=== PATIENT | male | born 1970 | race Caucasian/White ===

== ENCOUNTER 2018-05-27 19:11 | Emergency (ER) | payer SELFPAY ==
[2018-05-27 19:15] VITALS: BMI 27.2
[2018-05-27 19:38] VITALS: RESP 18
--- NOTE | 2018-05-27 21:57 | ED PDOC ---
Arrival/HPI - General Chief Complaint: Alcohol Ingestion Time Seen by Provider: 05/27/18 19:18 - History of Present Illness Narrative History of Present Illness (Text): Patient brought to the ED for alcohol intoxication, police found him sleeping in his car, he was not driving. Patient has no physical complaints. Past Medical History - Provider Review Nursing Documentation Reviewed: Yes JAIME Report Viewed: Yes - Travel History Have you recently traveled outside [place] w/in the past 3 mons?: No - Infectious Disease Hx of Infectious Diseases: None - Psychiatric Hx Substance Use: No - Anesthesia Hx Anesthesia: No Family/Social History - Physician Review Nursing Documentation Reviewed: Yes Family/Social History: Unknown Family HX Smoking Status: Unknown If Ever Smoked Hx Alcohol Use: No Hx Substance Use: No Allergies/Home Meds Allergies/Adverse Reactions: Allergies Unobtainable Allergy (Verified 05/27/18 19:15) Home Medications: Home Meds Medication Instructions Recorded Confirmed Unobtainable 05/27/18 05/27/18 Review of Systems - Review of Systems Systems not reviewed;Unavailable: Intoxicated Physical Exam - Physical Exam Physical Exam Limitations: Intoxication Vital Signs Reviewed: Yes Vital Signs Temp Pulse Resp BP Pulse Ox 05/27/18 19:11 99.3 F 119 H 18 175/103 H 95 Temperature: Afebrile Blood Pressure: Hypertensive Pulse: Tachycardic Respiratory Rate: Normal Appearance: Positive for: Unkept Mental Status: Positive for: other (intoxicated) Finger Stick Blood Glucose: 91 - Systems Exam Head: Present: Atraumatic, Normocephalic Pupils: Present: PERRL Conjunctiva: Present: Normal Mouth: Present: Moist Mucous Membranes Respiratory/Chest: Present: Clear to Auscultation Cardiovascular: Present: Regular Rate and Rhythm Abdomen: No: Tenderness Upper Extremity: Present: Normal Inspection Lower Extremity: Present: Normal Inspection Skin: Present: Warm, Dry Medical Decision Making ED Course and Treatment: Patient observed in the ED due to alcohol intoxication. Patient progressively returned to baseline throughout ED course. Was eventually AAOx3 and able to ambulate, wanting to go home. HR and BP improved. Stable for discharge home. Disposition/Present on Arrival - Present on Arrival Any Indicators Present on Arrival: No History of DVT/PE: No History of Uncontrolled Diabetes: No Urinary Catheter: No History of Decub. Ulcer: No History Surgical Site Infection Following: None - Disposition Have Diagnosis and Disposition been Completed?: Yes Diagnosis: ETOH abuse Disposition: HOME/ ROUTINE Disposition Time: 00:00 Condition: STABLE Discharge Instructions (ExitCare): Alcohol Abuse and Alcoholism (DC) Additional Instructions: LETY CARLOS, thank you for letting us take care of you today. Your provider was Kaye Patel MD and you were treated for ETOH. The emergency medical care you received today was directed at your acute symptoms. If you were prescribed any medication, please fill it and take as directed. It may take several days for your symptoms to resolve. Return to the Emergency Department if your symptoms worsen, do not improve, or if you have any other problems. Please contact your doctor or call one of the physicians/clinics you have been referred to that are listed on the Patient Visit Information form that is included in your discharge packet. Bring any paperwork you were given at discharge with you along with any medications you are taking to your follow up visit. Our treatment cannot replace ongoing medical care by a primary care provider outside of the emergency department. Thank you for allowing the [facility] team to be part of your care today. If you had an X-Ray or CT scan: A Radiologist will review the ED reading if any change in treatment is needed we will contact you. If you had a blood, urine, or wound culture: It will take several days for the results, if any change in treatment is needed we will contact you. If you had an STI test: It will take 48 hours for the results. Please call after 1 week if you have not heard back. Referrals: PCP,NO [Primary Care Provider] - Follow up with primary Forms: [employer] (Slovak)
[2018-05-28 04:56] VITALS: BP 168/77; PULSE 90; TEMP 98.9; O2SAT 96
== END 2018-05-28 | disposition home or self-care (01) ==
LOC: EDBD → ED 19:11
DX: F10.10 Alcohol abuse, uncomplicated (principal)